=== PATIENT | female | born 2000 | race Caucasian/White ===

== ENCOUNTER 2025-02-21 13:49 | Emergency (ER) | payer OTHER, MEDICAID, SELFPAY ==
[2025-02-21 13:51] VITALS: BP 125/78; PULSE 109; RESP 14; TEMP 36.9; O2SAT 100; BMI 42.9
[2025-02-21] MEDS: DiphenhydrAMINE 50 MG/ML Syringe 25 MG IV (14:51)
[2025-02-21] MEDS: Ketorolac 30 MG/ML Syringe IV (14:51)
[2025-02-21 14:55] VITALS: BP 119/76; PULSE 80; RESP 12; O2SAT 99
--- NOTE | 2025-02-21 16:01 | EX.ED.DYSGE1 ---
HPI History of Present Illness Chief Complaint: Allergic Reaction Informant: patient Narrative Narrative: 25-year-old female presenting to the emergency room with a lion fish sting to her right fingers. 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 She does not believe there are any foreign bodies present. She states that her hand feels swollen and is painful. She took Benadryl and rinsed her hand in hot water but symptoms are persisting. PFSH PFSH Medical History no medical history Allergy/AdvReac Type Severity Reaction Status Date / Time azithromycin (From Zithromax) Allergy Hives Verified 02/21/25 13:55 ibuprofen (From Motrin) Allergy Hives Verified 02/21/25 13:55 doxycycline AdvReac Nausea Verified 02/21/25 13:55 Social History Smoking Status: Never smoker ROS ROS ED Constitutional Constitutional ED: Denies chills, fever(s) or weight loss Eyes Eyes: Denies change in vision or diplopia ENT ENT ED: Denies ear pain, rhinorrhea or sore throat Cardiovascular Cardiovascular: Denies chest pain, orthopnea, palpitations or racing heartbeat Respiratory/Chest Respiratory/Chest: Reports dyspnea; Denies cough or orthopnea Gastrointestinal Gastrointestinal: Denies abdominal pain, diarrhea, nausea or vomiting Genitourinary Genitourinary ED: Denies dysuria, hematuria or urinary frequency Musculoskeletal Musculoskeletal: Denies arthralgias or myalgias Integumentary Reports other Details: See history of present illness ; Denies abscess or rash Neurologic Neurologic: Denies headache(s) or weakness Psychiatric Psychiatric: Denies anxiety, depression, suicidal ideation or suicidal thoughts Endocrine Endocrinology: Denies polydipsia, polyphagia or polyuria Allergic/Immunologic Allergic/Immunologic ED: Denies mouth swelling, tongue swelling or urticaria EXAM Physical Exam Const Vital Signs: 02/21/25 13:51 02/21/25 14:55 02/21/25 16:32 Temperature 98.4 F 98.6 F Temperature Source Oral Oral Pulse Rate 109 H 80 78 Respiratory Rate 14 12 16 Blood Pressure 125/78 H 119/76 118/91 H Blood Pressure Mean 93 90 100 Pulse Ox 100 99 98 Oxygen Delivery Method Room Air Room Air Room Air Positive well nourished and well developed General Appearance ED: well developed HEENT Reports normocephalic, head/scalp atraumatic and moist mucous membranes Eyes PERRL and EOMs intact bilaterally Neck no lymphadenopathy, supple and no JVD Resp normal respiratory effort and clear to auscultation bilaterally Cardio regular rate, regular rhythm and no murmurs GI normal to inspection, nondistended, normoactive bowel sounds and non-tender Palpation: soft Back/Spine no CVA tenderness and normal ROM Extremity Extremity Narrative: There is mild swelling of the index middle and ring finger. There is some mild erythema of the fingers extending up onto the MCP joint region. Neurovascular intact. There is mild swelling extending up onto the dorsum of the hand. I do not see any obvious foreign bodies with the overhead lamp on the digits. General Extremety ED: Negative for edema General Extremity: Negative for edema Neuro oriented x3 and CN's II-XII intact bilaterally Sensorium / Orientation: alert Motor Exam: strength 5/5 throughout Psych mental status grossly normal Mood & Affect: Negative for depressed or tearful Skin no rashes or lesions noted and no wounds MDM MDM MDM Narrative Medical decision making narrative: Differential diagnosis includes but not limited to envenomation anaphylaxis allergic reaction reaction to sting compartment syndrome We are able to obtain some hotter water than she had her hand in. She received a dose of Toradol as well as Benadryl. She was observed. At this point patient to be discharged home. I do not see systemic symptoms of anaphylaxis or reaction. Local wound care. Return if worsening or concerns follow-up with [facility] if not improving History & Record Review Discussion w/independent historian: Patient Discharge Plan Triage Chief Complaint: Allergic Reaction ED Provider: Arthur Carslon Dx/Rx/DC Orders Clinical Impression: Envenomation Primary Care Provider: Tanya Barros NP Referrals: [facility] [Provider Group] - 3-5 Days if not improving Tanya Barros NP, [employer]WORK [employer] MANAGER-C [Primary Care Provider, Medical] Print Language: Eritre[place] Disposition Disposition: Home, Self Care
[2025-02-21 16:32] VITALS: BP 118/91; PULSE 78; RESP 16; TEMP 37; O2SAT 98
[2025-02-21 16:38] VITALS: BP 118/91; PULSE 78; RESP 16; TEMP 37; O2SAT 98
== END 2025-02-21 16:39 | disposition home or self-care (01) ==
PROVIDERS: Emergency Provider Emergency Medicine; PCP Nurse Practitioner Family; Visit Provider Emergency Medicine
DX: M79.89 Other specified soft tissue disorders (principal); W56.51XA Bitten by other fish, initial encounter; Y99.0 Civilian activity done for income or pay; Y92.89 Other specified places as the place of occurrence of the external cause; L53.9 Erythematous condition, unspecified
CPT/HCPCS: 90471; 96374; 96375; 99284; A4216